=== PATIENT | female | born 1940 | race Hispanic/Latino ===

== ENCOUNTER 2021-03-10 13:37 | Emergency (ER) | payer MEDICARE, SELFPAY ==
[2021-03-10 13:54] VITALS: BP 174/95; PULSE 61; RESP 18; TEMP 37.2; O2SAT 97
--- NOTE | 2021-03-10 13:54 | ED.UPPEXIN ---
HPI - Extremity Injury (Upper) General Chief Complaint: Skin/Abscess/Foreign Body Stated Complaint: Cat Bite Time Seen by Provider: 03/10/21 13:54 Source: patient and RN notes reviewed Mode of arrival: ambulatory Limitations: no limitations History of Present Illness HPI narrative: 81-year-old female presents to the [facility] with pain, redness and swelling to the left forearm. States that on Thursday she was bit by a stray cat. Unknown last Tdap. States that she has been feeding the neighborhood cat for approximately 2 years. Does not believe the cat is up-to-date on immunizations. Positive radial pulse. Sensation intact in all 5 fingers Related Data Home Medications Medication Instructions Recorded Confirmed atenolol 100 mg PO DAILY 03/10/21 03/10/21 atorvastatin 10 mg PO HS 03/10/21 03/10/21 clopidogrel 75 mg PO DAILY 03/10/21 03/10/21 felodipine 10 mg PO DAILY 03/10/21 03/10/21 hydrochlorothiazide 12.5 mg PO DAILY 03/10/21 03/10/21 levothyroxine 25 mcg PO DAILY 03/10/21 03/10/21 lisinopril 40 mg PO BID 03/10/21 03/10/21 metformin 500 mg PO BID 03/10/21 03/10/21 Allergies Allergy/AdvReac Type Severity Reaction Status Date / Time aspirin Allergy Rash Verified 03/10/21 14:02 Review of Systems Review of Systems: All systems reviewed & are unremarkable except as noted in HPI and below Constitutional: Constitutional: Reports no additional constitutional complaints, Denies chills and Denies fever(s) Eyes: Eyes: Reports no additional eye complaints Cardiovascular: Cardiovascular: Reports no additional cardiovascular complaints and Denies chest pain Respiratory: Respiratory: Reports no additional respiratory complaints, Denies cough, Denies dyspnea and Denies wheezing Musculoskeletal: Musculoskeletal: Reports no additional musculoskeletal complaints, Denies back pain and Reports joint swelling Integumentary/Breasts: Skin/Breast: Reports erythema (Left forearm) Neurologic: Reports system reviewed and no additional complaints, except as documented and Denies dizziness Psychiatric: Psychiatric: Reports no additional psychiatric complaints PMFSH Past Medical History Medical History (Updated 03/10/21 @ 19:39 by Bere Baum) Diabetes High cholesterol Hypertension Hypothyroidism Exam Const: General: healthy appearing, no acute distress and alert Nutritional Appearance: well nourished Orientation/consciousness: patient oriented x3 Limitations: no limitations HENMT: Head: normal to inspection Eyes: Conjunctivae: conjunctivae normal Pupils: Equal, round and reactive pupils present Neck: Neck: normal visual inspection and no lymphadenopathy Chest: Chest palpation & inspection: normal inspection of the chest Resp: Effort & Inspection: normal respiratory effort and no use of accessory muscles Auscultation: clear to auscultation bilaterally, no crackles, no rales, no rhonchi and no wheezes Cardio: Rate: regular rate Rhythm: regular rhythm : General: Yes no CVA tenderness Back/Spine/Pelvis: Back: no CVA tenderness Skin: Wounds: wounds noted (Multiple puncture wounds, 3, noted ulnar aspect left forearm.) Other: Redness increased warmth to the lower left forearm measuring 18 cm x 12 cm, outlined with a sharpie marker. Hot to touch and swelling noted. Neuro: General: patient oriented x3 and moves all extremities Speech: normal speech Gait exam (Neuro): Normal gait present Extrem: Elbow/forearm/wrist images: 1. Cellulitic changes noted with 3 puncture wounds. Cellulitic changes 18 x 12 cm, outlined. Patient is having trouble dorsiflexing and flexing at wrist. Able to give a thumbs up and do finger tip touches. Sensation intact, capillary refill under 2 seconds Psych: Appearance: grossly normal and well kempt Mental Status: mental status grossly normal Affect: normal affect Attitude: cooperative Thought content: Yes Normal thought content present Course Vital Signs Vital signs: Marine
[2021-03-10 14:02] LABS: Glucose Point of Care 115 (65-105)
[2021-03-10] MEDS: TETANUS,DIPHTHERIA,AC PERTUSSIS ADULT (0.5 ML) BOOSTRIX IM (14:22)
--- NOTE | 2021-03-10 14:39 | PC.NURSE ---
Accu check 115
== END 2021-03-10 15:07 | disposition home or self-care (01) ==
PROVIDERS: Emergency Provider Nurse Practitioner
DX: L03.114 Cellulitis of left upper limb (principal); S51.852A Open bite of left forearm, initial encounter; W55.01XA Bitten by cat, initial encounter; Z23 Encounter for immunization; E11.9 Type 2 diabetes mellitus without complications; E78.00 Pure hypercholesterolemia, unspecified; I10 Essential (primary) hypertension; E03.9 Hypothyroidism, unspecified; Z79.84 Long term (current) use of oral hypoglycemic drugs
CPT/HCPCS: 82948; 90471; 90715; 99203; G0463

== ENCOUNTER → 2023-08-07 11:06 | Outpatient (CLI) | payer MEDICARE, SELFPAY ==
--- NOTE | ~2023-08-07 | DEXA_ITS ---
Bone Density Report Name: MARIZOL TEE Age: 83 Sex: Female Ethnicity: White Date of : 1940 Indication: postmenopausal; screening for osteoporosis; height loss; hysterectomy; Referring Provider: TABBY RESTREPO Study: Bone densitometry was performed. Exam Date: August 07, 2023 Accession number: [id number] Bone Density: Region BMD T-score Z-score Classification AP Spine (L1-L4) 1.351 2.8 5.6 Normal Femoral Neck (Left) 0.853 0.0 2.5 Normal Total Hip (Left) 0.966 0.2 2.4 Normal Femoral Neck (Right) 0.813 -0.3 2.1 Normal Total Hip (Right) 0.968 0.2 2.5 Normal Total Hip Mean 0.967 0.2 2.5 Normal World Health Organization criteria for BMD impression classify patients as: Normal (T-score at or above -1.0), Osteopenia (T-score between -1.0 and -2.5), or Osteoporosis (T-score at or below -2.5). 10-year Fracture Risk: FRAX not reported because: All T-scores for Spine Total, Hip Total, Femoral Neck at or above -1.0 Clinical Information Provided by Patient: Has used the following medications: Vitamin D, Calcium, THYROID MEDICATION Has the following medical conditions: Hysterectomy Patient maximum height was 63 Menopause Age: 37 No regular weight bearing exercise Does not regularly consume dairy products Drinks caffeinated beverages Onset of menses at age 11 Number of children 3 Impression: The patient has normal bone mass. Discussion: LOW RISK OF FRACTURE; BONE DENSITY IS WELL ABOVE THE MINIMUM DESIRABLE LEVEL AND ABOVE AVERAGE FOR AGE AND SEX AT ALL SKELETAL SITES TESTED. This person's bone density is above expected limits for age and sex. This is rarely clinically significant, but should be pursued if there are significant musculoskeletal complaints. The patient should follow a healthful lifestyle (good nutrition with adequate calcium and vitamin D, and appropriate weight-bearing exercise). Follow-Up: Consider repeating this study in 5 years or sooner if there is some new clinical indication. Reported by: ANSHUL on 08/07/2023 11:24:00 AM. Reviewed, dictated and finalized at location [facility]
== END ==
PROVIDERS: PCP Internal Medicine; Visit Provider Internal Medicine
DX: Z13.820 Encounter for screening for osteoporosis (principal); Z78.0 Asymptomatic menopausal state
CPT/HCPCS: 77080